=== PATIENT | female | born 1975 | race African-American/Black ===

== ENCOUNTER 2017-06-05 17:08 | Emergency (ER) | payer OTHER ==
[~2017-06-05] VITALS: Ht 167.6 cm; Wt 64.0 kg
[2017-06-05] MEDS ORDERED: MORPHINE SULFATE 4 MG/ML CPJ (NOT FOR IM USE) IV STA (19:13)
[2017-06-05] MEDS ORDERED: KETOROLAC 30MG/ML VIAL IV STA (19:13)
[2017-06-05 19:47] LABS: HCG SCREEN NEGATIVE
[2017-06-05] MEDS ORDERED: MORPHINE SULFATE 10 MG/ML CPJ IV ONE (20:30)
[2017-06-05 23:01] VITALS: BP 117/67
== END 2017-06-05 23:06 | disposition home or self-care (01) ==
LOC: ER 17:51
DX: S83.014A Lateral dislocation of right patella, initial encounter (principal); X58.XXXA Exposure to other specified factors, initial encounter; Y93.89 Activity, other specified; Y92.018 Other place in single-family (private) house as the place of occurrence of the external cause
CPT/HCPCS: 73560; 84703; 96374; 96375; 96376; 99285; J1885; J2270; L1830